=== PATIENT | female | born 1985 | race Caucasian/White ===

== ENCOUNTER 2024-03-17 03:03 | Day surgery (SDC) | payer OTHER ==
[~2024-03-17] VITALS: Ht 162.6 cm; Wt 66.3 kg
[2024-03-17] VITALS (200 sets, daily range): BP systolic 84–152; BP diastolic 46–91
[2024-03-17] MEDS ORDERED: CYANOCOBALAMIN 500 MCG/TAB ( B12) PO PRN (07:30)
[2024-03-17] MEDS ORDERED: cloNIDine HCL 0.1 MG/TAB PO PRN (07:30)
[2024-03-17] MEDS ORDERED: SCOPOLAMINE 1.5 MG DIS TD PRN (07:30)
[2024-03-17] MEDS ORDERED: PANTOPRAZOLE SODIUM Sesquihydr 40 MG/TAB PO PRN (07:30)
[2024-03-17] MEDS ORDERED: diazePAM 5 MG/TAB PO PRN ×2 (07:30→08:30)
[2024-03-17] MEDS ORDERED: ALBUTEROL SULFATE 2.5 MG VIAL IN PRN (07:30)
[2024-03-17] MEDS ORDERED: LACTATED RINGER'S 1,000 ML IV PRN ×3 (07:30→19:00)
[2024-03-17] MEDS ORDERED: FAMOTIDINE 20 MG/TAB PO PRN (07:30)
[2024-03-17] MEDS ORDERED: PHENYLEPHRINE HCL 10 MG in SODIUM CHLORIDE 0.9% 250 ML IV SCH (07:55)
[2024-03-17] MEDS ORDERED: ASCORBIC ACID 4,000 MG in SODIUM CHLORIDE 0.9% 1,000 ML IV SCH (08:00)
[2024-03-17 08:52] LABS: BASO% 0.8 % (0-3); EOS% 7.2 % (0-8); HEMATOCRIT 40.3 % (37.0-47.0); HEMOGLOBIN 13.2 g/dl (12.0-16.0); LYMPH% 33.1 % (15-41); MEAN CELL VOLUME 94.4 fL CALC (80.0-100.0); MEAN CORPUSCULAR HGB 30.9 pG CALC (26.0-32.0); MEAN CORPUSCULAR HGB CONC 32.8 g/dL CAL (32.0-36.0); MONO% 6.4 % (2-13); NEUT# 2.54 thou/uL (2.00-7.15); NEUT% 52.5 % (42-76); RED BLOOD COUNT 4.27 mill/uL (4.20-5.60); RED CELL DISTRI WIDTH 12.4 % (11.5-15.5)
[2024-03-17] MEDS ORDERED: OCTREOTIDE ACETATE 100 MCG/VIAL SDV SC PRN (09:10)
[2024-03-17] MEDS ORDERED: cloNIDine HYDROCHLORIDE 100 MCG/ML 10 ML INJ IV PRN (09:10)
[2024-03-17] MEDS ORDERED: PROPOFOL 10 MG/ML 100ML VIAL IV PRN (09:10)
[2024-03-17] MEDS ORDERED: MAGNESIUM SULFATE HEPTAHYDRATE 100 ML IV PRN (09:10)
[2024-03-17] MEDS ORDERED: MIDAZOLAM HCL 2 MG/2 ML VIAL IV PRN (09:10)
[2024-03-17] MEDS ORDERED: ROCURONIUM BROMIDE 10 MG/ML 5ML VIAL IV PRN (09:10)
[2024-03-17] MEDS ORDERED: DiphenhydrAMINE HCL 50 MG/ML SDV IV PRN (09:10)
[2024-03-17] MEDS ORDERED: PROPOFOL 100 ML IV PRN (09:10)
[2024-03-17] MEDS ORDERED: cloNIDine HCL 0.1 MG/TAB VT PRN (09:10)
[2024-03-17] MEDS ORDERED: SUCCINYLCHOLINE CHLORIDE 20 MG/ML 10ML VIAL IV PRN (09:10)
[2024-03-17] MEDS ORDERED: LIDOCAINE HCL 1% (10MG/ML) 100 MG/10 ML MDV IV PRN (09:10)
[2024-03-17] MEDS ORDERED: THIAMINE HCL 100 MG/ML 2ML VIAL IV PRN (09:10)
[2024-03-17] MEDS ORDERED: diazePAM 5 MG/TAB VT PRN (09:10)
[2024-03-17] MEDS ORDERED: STERILE WATER FOR IRRIGATION 1,000 ML BTL IR PRN (09:10)
[2024-03-17] MEDS ORDERED: ONDANSETRON HCl 4 MG/2 ML SDV IV PRN ×3 (09:10→19:00)
[2024-03-17] MEDS ORDERED: NALTREXONE HCL 50 MG/TAB VT PRN (09:10)
[2024-03-17] MEDS ORDERED: LIDOCAINE HCL 1% (10MG/ML) 100 MG/10 ML MDV VT PRN ×2 (09:10)
[2024-03-17 09:18] LABS: ALBUMIN 4.3 g/dL (3.2-5.0); BILIRUBIN, TOTAL 0.3 mg/dL (0.02-1.3); CREATININE 0.7 mg/dL (0.5-1.0); POTASSIUM 4.3 mmol/l (3.5-5.1)
[2024-03-17] MEDS ORDERED: POTASSIUM CHLORIDE 20 MEQ/100 ML BAG IV PRN (09:25)
[2024-03-17] MEDS ORDERED: clonazePAM 1 MG/TAB PO PRN (11:05)
[2024-03-17] MEDS ORDERED: NALTREXONE50 MG PO (15:02)
[2024-03-17] MEDS ORDERED: KLONOPIN2 MG PO (15:02)
[2024-03-17] MEDS ORDERED: CLONIDINE0.1 MG PO (15:02)
[2024-03-17] MEDS ORDERED: ACETAMINOPHEN 1,000 MG/100 ML VIAL IV PRN (19:00)
[2024-03-17] MEDS ORDERED: PROMETHAZINE HCL 25 MG in SODIUM CHLORIDE 0.9% 50 ML IV PRN (19:00)
[2024-03-17] MEDS ORDERED: PROMETHAZINE HCL 12.5 MG in SODIUM CHLORIDE 0.9% 50 ML IV PRN (19:00)
[2024-03-17] MEDS ORDERED: LORazepam 2 MG/ML IV PRN ×2 (19:00)
[2024-03-17] MEDS ORDERED: HALOPERIDOL LACTATE 5 MG/ML SDV IV PRN ×2 (19:00→22:15)
[2024-03-17] MEDS ORDERED: KETOROLAC TROMETHAMINE 30 MG/ML SDV IV PRN (19:00)
[2024-03-17] MEDS ORDERED: ACETAMINOPHEN 500 MG TAB PO PRN (19:00)
[2024-03-17] MEDS ORDERED: PATIENT' OWN MED CONTROLLED 1 EA DOSE IV PRN (21:00)
[2024-03-17] MEDS ORDERED: cloNIDine HCL 0.1 MG/TAB PO SCH (23:00)
[2024-03-18] MEDS ORDERED: NALTREXONE HCL 50 MG/TAB PO SCH ×2 (04:00→09:30)
[2024-03-18] MEDS ORDERED: clonazePAM 1 MG/TAB PO PRN ×2 (04:00→08:00)
[2024-03-18] MEDS ORDERED: cloNIDine HCL 0.1 MG/TAB PO PRN (04:00)
[2024-03-18 04:20] VITALS: BP 116/67
[2024-03-18 05:42] LABS: BASO% 0.1 % (0-3); HEMOGLOBIN 11.7 g/dl (12.0-16.0); IMMATURE GRANULOCYTES 0.3 % (0.0-5.0); LYMPH% 12.7 % (15-41); MEAN CORPUSCULAR HGB 32.1 pG CALC (26.0-32.0); MEAN CORPUSCULAR HGB CONC 34.1 g/dL CAL (32.0-36.0); MONO% 4.3 % (2-13); NEUT# 7.55 thou/uL (2.00-7.15); NEUT% 82.6 % (42-76); RED BLOOD COUNT 3.65 mill/uL (4.20-5.60); RED CELL DISTRI WIDTH 12.3 % (11.5-15.5)
[2024-03-18 05:50] LABS: BILIRUBIN, TOTAL 0.4 mg/dL (0.02-1.3); CREATININE 0.5 mg/dL (0.5-1.0); TOTAL PROTEIN 5.9 g/dL (6.3-8.2)
[2024-03-18 05:53] LABS: HEMATOCRIT 34.3 % (37.0-47.0)
[2024-03-18 05:55] LABS: ALBUMIN 3.4 g/dL (3.2-5.0)
[2024-03-18 07:30] VITALS: BP 98/44
[2024-03-18] MEDS ORDERED: PANTOPRAZOLE SODIUM Sesquihydr 40 MG/TAB PO SCH (08:00)
[2024-03-18] MEDS ORDERED: ACETAMINOPHEN 325 MG/TAB PO SCH (08:00)
[2024-03-18] MEDS ORDERED: cloNIDine HCL 0.1 MG/TAB PO SCH (08:00)
[2024-03-18 08:11] VITALS: BP 110/59
[2024-03-18] MEDS ORDERED: ACETAMINOPHEN 500 MG TAB PO PRN (09:00)
[2024-03-18] MEDS ORDERED: Cholecalciferol 2,000 UNIT/TAB PO PRN (09:00)
[2024-03-18] MEDS ORDERED: MAGNESIUM OXIDE 400 MG/TAB PO PRN (09:00)
== END 2024-03-18 16:04 | disposition home or self-care (01) | DRG 897 ==
LOC: ANR 03:03 → MS2 03:03 → ANR 08:00 → MS2 16:38 → ANR 03-18 16:04
PROVIDERS: ATTEND Anesthesiology Critical Care Medicine
DX: F11.20 Opioid dependence, uncomplicated (principal)
CPT/HCPCS: J0735; J1100; J1200; J1630; J2060; J2354; J2405; J2704; J3411; J3475; J3480; J3490